=== PATIENT | male | born 1955 | race Caucasian/White ===

== ENCOUNTER 2021-04-04 12:21 | Emergency (ER) | payer MEDICARE, BC ==
--- NOTE | 2021-04-04 13:18 | EDM.PDOC ---
ED HPI GENERAL MEDICAL PROBLEM - General Chief Complaint: Bite:Animal, Insect Stated Complaint: ANIMAL BITE/R HAND Time Seen by Provider: 04/04/21 12:37 Source of Information: Reports: Patient, RN Notes Reviewed History Limitations: Reports: No Limitations - History of Present Illness INITIAL COMMENTS - FREE TEXT/NARRATIVE: Patient is a 65-year-old male who presents to the ER for a cat bite on his right hand. He was seen in clinic on Wednesday, and started on oral antibiotics, Augmentin for this. He has been taking the antibiotic as prescribed. He has not missed a dose. He is concerned today, because there is still redness/swelling, and when he opens the wound up and squeezes us out, there is some purulent material that does come from it. He did have some red streaking up his arm a day ago, this is gotten better. There is tenderness and swelling around the patient's right PIP joint. He has not had any fevers or chills, cough or shortness of breath, or any sort of worsening sick-like symptoms since then. Right Finger-Thumb Pain Score (Numeric/FACES): 5 - Related Data Allergies Allergy/AdvReac Type Severity Reaction Status Date / Time No Known Allergies Allergy Verified 04/04/21 12:35 Home Meds: Home Meds Esomeprazole [Take Home: Esomeprazole 40 MG Cap, 1 Cap Pack] 40 mg PO DAILY 09/27/16 [History] Pravastatin Sodium 20 mg PO DAILY 09/27/16 [History] Vitamins. 1 tab PO DAILY 09/27/16 [History] Amoxicillin/Potassium Clav [Amox-Clav 875-125 mg Tablet] 125 - 875 mg PO BID 04/04/21 [History] Clindamycin HCl 300 mg PO TID 7 Days #21 capsule 04/04/21 [Rx] Tamsulosin HCl 0.4 mg PO DAILY 04/04/21 [History] Past Medical History Cardiovascular History: Reports: High Cholesterol Gastrointestinal History: Reports: Other (See Below) Other Gastrointestinal History: hayward's Genitourinary History: Reports: Prostate Disorder Endocrine/Metabolic History: Reports: Diabetes, Type II - Infectious Disease History Infectious Disease History: Reports: Measles - Past Surgical History HEENT Surgical History: Reports: Tonsillectomy Musculoskeletal Surgical History: Reports: Knee Replacement, Shoulder Surgery Social & Family History - Tobacco Use Tobacco Use Status *Q: Never Tobacco User Second Hand Smoke Exposure: No - Caffeine Use Caffeine Use: Reports: Coffee - Alcohol Use Days Per Week of Alcohol Use: 7 Number of Drinks Per Day: 2 Total Drinks Per Week: 14 - Recreational Drug Use Recreational Drug Use: No ED ROS GENERAL - Review of Systems Review Of Systems: Comprehensive ROS is negative, except as noted in HPI. ED EXAM, ANIMAL BITE - Physical Exam Exam: See Below Exam Limited By: No Limitations General Appearance: Alert, WD/WN, No Apparent Distress Respiratory/Chest: No Respiratory Distress, Lungs Clear, Normal Breath Sounds, No Accessory Muscle Use, Chest Non-Tender Cardiovascular: Normal Peripheral Pulses, Regular Rate, Rhythm, No Edema, No Murmur Peripheral Pulses: 2+: Radial (L), Radial (R) Extremities: Normal Range of Motion, Normal Capillary Refill, Increased Warmth (about the R first PIP), Redness (about the R first PIP) Neurological: Alert, Oriented, Normal Cognition, No Motor/Sensory Deficits Psychiatric: Normal Affect, Normal Mood Skin Exam: Warm/Dry, Other (erythma about the R first PIP) Course - Vital Signs Last Recorded V/S: Last Vital Signs Temp 98.4 F 04/04/21 13:50 Pulse 72 04/04/21 13:50 Resp 16 04/04/21 13:50 BP 146/89 H 04/04/21 13:50 Pulse Ox 97 04/04/21 13:50 - Re-Assessments/Exams Free Text/Narrative Re-Assessment/Exam: 04/04/21 13:18 Patient presents to the ER for the evaluation of his cat bite, since this is over a joint, I did have Dr. Lund take a look at the gentleman's hand as well, he does recommend double coverage with a different antibiotic; and no need to perform imaging, we will go ahead and start the patient on clindamycin. Departure - Departure Time of Disposition: 13:19 Disposition: Home, Self-Care 01 Condition: Good Clinical Impression: Cat bite of right hand Qualifiers: Encounter type: initial encounter Qualified Code(s): S61.451A - Open bite of right hand, initial encounter - Discharge Information *PRESCRIPTION DRUG MONITORING PROGRAM REVIEWED*: No *COPY OF PRESCRIPTION DRUG MONITORING REPORT IN PATIENT STEVE: No Prescriptions: Clindamycin HCl 300 mg PO TID 7 Days #21 capsule Instructions: Animal Bite, Adult, [id number] Referrals: PCP,None [Primary Care Provider] - Forms: ED Department Discharge Additional Instructions: You were seen in this ER for your cat bite to your right hand. The antibiotics you were given, do seem to be providing coverage but you will be started on a second antibiotic to provide further coverage. This will be clindamycin tablets 3 times a day for the next 7 days. Please be aware, that the combination of the Augmentin and clindamycin can cause some diarrhea. Highly and strongly recommend you start taking a probiotic while taking both of these antibiotics to introduce good bacteria into your GI tract and try to prevent from developing diarrhea. This medication was electronically sent to the [facility] located on [address]. If you should develop any fevers or chills, redness/streaking up your arm, please do not hesitate to return to the ER this weekend for further evaluation. Highly recommend you get seen by another provider on Wednesday as well, for reevaluation and to make sure that the wound/hand is getting better as expected. Please refrain from squeezing the area, as this might be causing some irritation to the wound, you may try some hot compresses, to see if this helps relieve some of the pain/swelling, this may also allow the area to drain, without excess irritation. Sepsis Event Note (ED) - Evaluation Sepsis Screening Result: No Definite Risk - Focused Exam Vital Signs: Vital Signs Temp Pulse Resp BP Pulse Ox 04/04/21 13:50 98.4 F 72 16 146/89 H 97 04/04/21 12:30 97.8 F 74 16 161/80 H 98
[2021-04-04 13:56] VITALS: BP 146/89; PULSE 72
== END 2021-04-04 13:55 | disposition home or self-care (01) ==
LOC: JD.ED 12:21
DX: S61.451A Open bite of right hand, initial encounter (principal); E78.00 Pure hypercholesterolemia, unspecified; E11.9 Type 2 diabetes mellitus without complications; W55.01XA Bitten by cat, initial encounter
CPT/HCPCS: 99283